=== PATIENT | female | born 1955 | race Caucasian/White ===

== ENCOUNTER 2021-04-15 12:47 | Emergency (ER) | payer MEDICARE ==
[2021-04-15 14:06] LABS: HEMOGLOBIN 13.5 gm/dl (12.3-15.3); RED BLOOD COUNT 4.63 M/UL (4.00-5.10); WHITE BLOOD COUNT 10.1 K/UL (4.5-11.0)
[2021-04-15 14:34] LABS: BUN/CREATININE RATIO 35 (0-10)
[2021-04-15] MEDS ORDERED: HYDROCODON-ACE1 EAC4 PO (18:13)
[2021-04-15] MEDS ORDERED: AMOX TR-K CLV1 EAC4 PO (18:13)
[2021-04-15] MEDS ORDERED: ZOFRAN ODT 4 MG4 MG SL (18:13)
== END 2021-04-15 20:00 | disposition home or self-care (01) ==
LOC: ER1 12:47
PROVIDERS: Emergency Medicine
DX: K52.9 Noninfective gastroenteritis and colitis, unspecified (principal); F17.210 Nicotine dependence, cigarettes, uncomplicated; Z20.822 Contact with and (suspected) exposure to COVID-19
CPT/HCPCS: 71045; 80053; 81001; 82550; 82553; 83690; 83874; 84484; 85025; 85379; 93005; 96374; 96375; 99285; J2270; J2405; Q9967; U0002

== ENCOUNTER 2021-09-14 20:35 | Emergency (ER) | payer MEDICARE ==
[~2021-09-14 20:35] MED LIST: AMOX TR-K CLV1 EAC4 PO; HYDROCODON-ACE1 EAC4 PO; ZOFRAN ODT 4 MG4 MG SL
[2021-09-15 01:09] LABS: HEMOGLOBIN 13.2 gm/dl (12.3-15.3); RED BLOOD COUNT 4.67 M/UL (4.00-5.10); WHITE BLOOD COUNT 9.6 K/UL (4.5-11.0)
[2021-09-15 01:42] LABS: BUN/CREATININE RATIO 15 (0-10)
[2021-09-15] MEDS ORDERED: TORADOL 10 MG T10 MG PO (02:28)
== END 2021-09-15 02:35 | disposition home or self-care (01) ==
LOC: ER1 20:35
PROVIDERS: Physician Assistant
DX: G89.29 Other chronic pain (principal); M25.551 Pain in right hip; M25.552 Pain in left hip; M79.601 Pain in right arm; M79.602 Pain in left arm; M25.542 Pain in joints of left hand; Z20.822 Contact with and (suspected) exposure to COVID-19; M79.644 Pain in right finger(s); M79.645 Pain in left finger(s); M25.541 Pain in joints of right hand; F17.200 Nicotine dependence, unspecified, uncomplicated; Z87.39 Personal history of other diseases of the musculoskeletal system and connective tissue
CPT/HCPCS: 0240U; 80053; 84550; 85025; 85652; 86140; 93005; 96372; 99283; J1885

== ENCOUNTER → 2021-10-31 | Outpatient (CLI) | payer OTHER ==
[~2021-10-31] MED LIST changes: +TORADOL 10 MG T10 MG PO
== END ==
LOC: LAB 20:37
DX: Z02.83 Encounter for blood-alcohol and blood-drug test (principal)
CPT/HCPCS: 36415

== ENCOUNTER 2021-11-23 08:52 | Emergency (ER) | payer MEDICARE ==
[2021-11-23] MEDS ORDERED: AMOX TR-K CLV1 EAC4 PO (09:22)
[2021-11-23] MEDS ORDERED: IBUPROFEN600 MG PO (09:22)
== END 2021-11-23 09:59 | disposition home or self-care (01) ==
LOC: ER1 08:52
DX: K04.7 Periapical abscess without sinus (principal); F17.210 Nicotine dependence, cigarettes, uncomplicated
CPT/HCPCS: 99282